=== PATIENT | female | born 1995 | race Caucasian/White ===

== ENCOUNTER 2019-04-23 19:24 | Emergency (ER) | payer BC ==
[2016-07-12 03:30] VITALS: BP 133/75
[~2019-04-23] VITALS: Ht 162.6 cm; Wt 77.1 kg
[~2019-04-23 19:24] MED LIST: HYDR-1179 PO; TIZA4TAB PO
--- NOTE | 2019-04-23 19:31 | ED.ADGEN ---
Past History Past Medical History: Constipation, Ovarian Cyst, Other Past Surgical History: Other Alcohol Use: Occasionally Drug Use: None Adult General Chief Complaint Chief Complaint ".. I got a hurt thumb..my baby hit it...".. " I already had problems with it.. ".. " It was caught on the table just right when he came down on it.. I had it recently injected with steroids.." HPI HPI Patient is a 24 year old female who presents with above hx and complaints of severe right thumb pain after contusion injury. Distal sensation intact. Capillary refill is equal to left thumb. Patient does have some edema to the thumb. Range motion exacerbates the pain. Patient is right-hand dominant. Pain is exacerbated with extension type movements and loading. There is some tenderness in the snuffbox area of hand. Patient denies any immunosuppression. Patient denies any history of travel or ill contacts. Patient has an bioinformatics support specialist she follows with at [facility]. Review of Systems Review of Systems Constitutional: Denies fever or chills [] Eyes: Denies change in visual acuity, redness, or eye pain [] HENT: Denies nasal congestion or sore throat [] Respiratory: Denies cough or shortness of breath [] Cardiovascular: No additional information not addressed in HPI [] GI: Denies abdominal pain, nausea, vomiting, bloody stools or diarrhea [] : Denies dysuria or hematuria [] Musculoskeletal: Denies back pain or joint pain []complaints of severe right thumb pain Integument: Denies rash or skin lesions [] Neurologic: Denies headache, focal weakness or sensory changes [] Endocrine: Denies polyuria or polydipsia [] All other systems were reviewed and found to be within normal limits, except as documented in this note. Family History Family History Noncontributory Current Medications Current Medications Current Medications Medications (Trade) Dose Ordered Sig/Gavin Start Time Stop Time Status Last Admin Dose Admin Oxycodone/ Acetaminophen (Percocet 5/325) 2 tab 1X ONCE 04/23/19 20:30 04/23/19 20:31 DC 04/23/19 20:24 2 TAB Allergies Allergies Allergies Coded Allergies Type Severity Reaction Last Updated Verified Penicillins Allergy Unknown 07/12/16 Yes amoxicillin Allergy Unknown 07/12/16 Yes codeine Allergy Unknown 07/12/16 Yes Physical Exam Physical Exam Constitutional: in acute distress, non-toxic appearance. [] HENT: Normocephalic, atraumatic, bilateral external ears normal, oropharynx moist, no oral exudates, nose normal. [] Eyes: PERRLA, EOMI, conjunctiva normal, no discharge. [] Neck: Normal range of motion, no tenderness, supple, no stridor. [] Cardiovascular:Heart rate regular rhythm, no murmur [] Lungs & Thorax: Bilateral breath sounds clear to auscultation [] Abdomen: Bowel sounds normal, soft, no tenderness, no masses, no pulsatile masses. [] Skin: Warm, dry, no erythema, no rash. [] Back: No tenderness, no CVA tenderness. [] Extremities: No tenderness, no cyanosis, no clubbing, ROM intact, no edema. [] Except findings in right thumb as per history of present illness Neurologic: Alert and oriented X 3, normal motor function, normal sensory function, no focal deficits noted. [] Psychologic: Affect anxious, judgement normal, mood normal. [] Current Patient Data Vital Signs Vital Signs Date Time Temp Pulse Resp B/P (MAP) Pulse Ox O2 Delivery O2 Flow Rate FiO2 04/23/19 20:24 20 Room Air 04/23/19 19:30 98.2 74 98 EKG EKG [] Radiology/Procedures Radiology/Procedures My interpretation of right hand x-ray shows some edema at base or proximal joint of right thumb phalange[]. No obvious fracture or dislocation Course & Med Decision Making Course & Med Decision Making Pertinent Labs and Imaging studies reviewed. (See chart for details) Distal neurovascular intact after application of thumb spica splint. Wear splint. Elevation. Ice packs as needed. Take Tylenol and ibuprofen for pain. Follow-up with bioinformatics support specialist. Return if any concerns. [] Final Impression Final Impression 1. Contusion to right thumb[] Dragon Disclaimer Dragon Disclaimer This electronic medical record was generated, in whole or in part, using a voice recognition dictation system. Discharge Summary Visit Information Final Diagnosis Problems Medical Problems: (1) Injury, thumb Status: Acute Brief Hospital Course Allergies Allergies Coded Allergies Type Severity Reaction Last Updated Verified Penicillins Allergy Unknown 07/12/16 Yes amoxicillin Allergy Unknown 07/12/16 Yes codeine Allergy Unknown 07/12/16 Yes Vital Signs Vital Signs Date Time Temp Pulse Resp B/P (MAP) Pulse Ox O2 Delivery O2 Flow Rate FiO2 04/23/19 20:24 20 Room Air 04/23/19 19:30 98.2 74 98 Brief Hospital Course Ms. Oneil is a 24 old female who presented with Rt. thumb injury. Discharge Information Condition at Discharge: Improved, Stable Disposition/Orders: D/C to Home Dischare Medications Current Medications Oxycodone/ Acetaminophen (Percocet 5/325) 2 tab 1X ONCE PO Last administered on 04/23/19at 20:24; Admin Dose 2 TAB; Start 04/23/19 at 20:30; Stop 04/23/19 at 20:31; Status DC Active Scripts Active Hydrocodone-Ibuprofen 7.5-200 (Hydrocodone/Ibuprofen) 1 Each Tablet 1 Tab PO PRN Q6HRS PRN Reported Tizanidine Hcl (Tizanidine HCl) 4 Mg Tablet 2 Mg PO BID Darleenon Disclaimer This chart was dictated in whole or in part using Voice Recognition software in a busy, high-work load, and often noisy Emergency Department environment. It may contain unintended and wholly unrecognized errors or omissions. BETTY CASTAÑEDA MD Apr 23, 2019 19:31
[2019-04-23] MEDS ORDERED: oxyCODONE/APAP 5/325 1 TAB TABLET PO ONE (20:30)
--- NOTE | 2019-04-24 07:36 | RAD ---
EXAM: PA, oblique and lateral views right hand DATE: 04/23/2019 7:36 PM INDICATION: Right thumb injury radiating into palm and wrist COMPARISON: No Prior FINDINGS/ IMPRESSION: 1. No evidence of acute fracture or dislocation. If there is persistent clinical concern for fracture, follow-up radiographs in 10-14 days is recommended. 2. Joint spaces are preserved without significant degenerative/proliferative change. 3. Mild soft tissue swelling about the thumb Electronically signed by: Ye Camacho MD (04/24/2019 7:34 AM) [facility]
== END 2019-04-23 21:00 | disposition home or self-care (01) ==
LOC: ER 19:24
DX: S60.011A Contusion of right thumb without damage to nail, initial encounter (principal); Z88.1 Allergy status to other antibiotic agents; Z88.0 Allergy status to penicillin; Z88.5 Allergy status to narcotic agent; W50.0XXA Accidental hit or strike by another person, initial encounter; Y93.89 Activity, other specified; Y92.89 Other specified places as the place of occurrence of the external cause; Y99.8 Other external cause status
CPT/HCPCS: 29125; 73130; 99284

== ENCOUNTER 2019-10-01 10:53 | Emergency (ER) | payer BC ==
[~2019-10-01 10:53] MED LIST changes: -TIZA4TAB PO; +TIZA4TAB2 PO
[2019-10-01 11:36] LABS: BACTERIA,URINE 0 /HPF (0-FEW); BILIRUBIN,URINE NEG (NEG); CLARITY,URINE CLEAR; COLOR,URINE YELLOW; GLUCOSE,URINE NEG (NEG); NITRITE,URINE NEG (NEG); SQUAMOUS EPITHELIAL CELL,UR MOD /LPF; UROBILINOGEN,URINE 0.2 mg/dL (0.2 mg/dL)
[2019-10-01 11:37] LABS: U PREG PATIENT NEGATIVE (NEG)
[2019-10-01] MEDS ORDERED: IV NORMAL SALINE 1,000ML 1,000 ML IV SCH (11:40)
--- NOTE | 2019-10-01 11:46 | PHYS DOC ---
Past History Past Medical History: Constipation, Ovarian Cyst Past Surgical History: No Surgical History Alcohol Use: Occasionally Drug Use: None Adult General Chief Complaint Chief Complaint: VAGINAL BLEEDING [facility] HPI Patient is a 24-year-old female who presents with report of heavy vaginal bleeding and passing clots that started this past Tuesday. Patient states that she has gone through 2 boxes of tampons since that time. She does indicate that she recently started control that she had been on in the past in the form of NuvaRing. She does indicate that she had unprotected sex prior to placing the NuvaRing. She is not sure whether or not she could be . She does indicate that she has had a lot of pelvic pain and states that she does have history of PCO S and has had numerous ovarian cysts in the past but states that this pain is more severe. She denies any fever. She also denies any chest pain or shortness of breath. She does indicate that the pelvic pain radiates into her lower back.[] Review of Systems Review of Systems Constitutional: Denies fever or chills [] Respiratory: Denies cough or shortness of breath [] Cardiovascular: No additional information not addressed in HPI [] GI: Complains of lower abdominal/pelvic pain without vomiting or diarrhea[] : Complains of heavy vaginal bleeding and pelvic pain[] Musculoskeletal: Complains of lower back pain [] Neurologic: Denies headache, focal weakness or sensory changes [] All other systems were reviewed and found to be within normal limits, except as documented in this note. Allergies Allergies Allergies Coded Allergies Type Severity Reaction Last Updated Verified Penicillins Allergy Unknown 07/12/16 Yes amoxicillin Allergy Unknown 07/12/16 Yes codeine Allergy Unknown 07/12/16 Yes Physical Exam Physical Exam Constitutional: Well developed, well nourished, no acute distress, non-toxic appearance. [] HENT: Normocephalic, atraumatic, bilateral external ears normal, oropharynx moist, no oral exudates, nose normal. [] Eyes: PERRLA, EOMI, conjunctiva normal, no discharge. [] Neck: Normal range of motion, no tenderness, supple. [] Cardiovascular: Regular rate and rhythm[] Lungs & Thorax: Bilateral breath sounds clear to auscultation [] Abdomen: Bowel sounds normal, soft, with lower abdominal tenderness. [] Skin: Warm, dry, no erythema, no rash. [] Extremities: No tenderness, no cyanosis, no clubbing, ROM intact. [] Neurologic: Alert and oriented X 3, no focal deficits noted. [] EKG EKG [] Radiology/Procedures Radiology/Procedures [] Impressions: PROCEDURE: US PELVIS Examination: US PELVIS History: Heavy bleeding, cramping Comparison/Correlation: None Findings: Transabdominal pelvic ultrasound also performed. Uterus measures 8 cm x 5.8 cm x 2.9 cm myometrium is unremarkable. Endometrial thickness of 1.5 cm present. Morphology of the endometrial cavity raises possibly of arcuate or septate uterus. Right ovary measures 2.8 x 1.9 cm in length. Left ovary measures 2.2 cm x 2.6 cm x 1 cm. Normal appearing flow and color Doppler imaging evaluation. No pelvic free fluid. Impression: Thickened endometrium. Correlate with menstrual cycle. No intrauterine gestation. Findings which raise question of arcuate or septate uterus. No adnexal masses. Electronically signed by: Christiano Victor MD (10/01/2019 1:43 PM) [facility] [place] Course & Med Decision Making Course & Med Decision Making Pertinent Labs and Imaging studies reviewed. (See chart for details) [] Dragon Disclaimer Dragon Disclaimer This electronic medical record was generated, in whole or in part, using a voice recognition dictation system. Departure Departure: Impression: Primary Impression: Dysmenorrhea Additional Impression: Menorrhagia Disposition: 01 HOME, SELF-CARE Condition: STABLE Referrals: LOGAN SMILEY (PCP) Patient Instructions: Dysmenorrhea, Menorrhagia Scripts Ondansetron (ONDANSETRON ODT) 4 Mg Tab.rapdis 1 TAB PO PRN Q6-8HRS PRN for NAUSEA, #12 TAB Prov: GARETT BERMAN Jr. DO 10/01/19 Hydrocodone Bit/Acetaminophen (NORCO 5-325 TABLET) 1 Each Tablet 1 TAB PO PRN Q6HRS PRN for PAIN, #12 TAB 0 Refills Prov: GARETT BERMAN Jr. DO 10/01/19 Problem Qualifiers Additional Impression: Menorrhagia Menorrahagia type: with irregular cycle Qualified Codes: N92.1 - Excessive and frequent menstruation with irregular cycle GARETT BERMAN Jr. DO Oct 01, 2019 11:46
[2019-10-01 12:06] LABS: BASO # 0.1 x10^3/uL (0.0-0.2); BASO % 1 % (0-3); EOS # 0.1 x10^3/uL (0.0-0.7); EOS % 1 % (0-3); HEMATOCRIT 40.5 % (36.0-47.0); HEMOGLOBIN 13.8 g/dL (12.0-15.5); LYMPH # 2.2 x10^3/uL (1.0-4.8); LYMPH % 21 % (24-48); MEAN CORPUSCULAR HEMOGLOBIN 29 pg (25-35); MEAN CORPUSCULAR HGB CONC 34 g/dL (31-37); MEAN CORPUSCULAR VOLUME 85 fL (79-100); MONO # 0.5 x10^3/uL (0.0-1.1); MONO % 4 % (0-9); NEUT # 7.6 x10^3uL (1.8-7.7); NEUT % 73 % (31-73); PLATELET COUNT 247 x10^3/uL (140-400); RED BLOOD COUNT 4.74 x10^6/uL (3.50-5.40); RED CELL DISTRIBUTION WIDTH 14.6 % (11.5-14.5); WHITE BLOOD COUNT 10.5 x10^3/uL (4.0-11.0)
[2019-10-01 12:21] LABS: CALCIUM 9.6 mg/dL (8.5-10.1); CREATININE 0.7 mg/dL (0.6-1.0); POTASSIUM 3.7 mmol/L (3.5-5.1)
[2019-10-01 12:26] LABS: DIRECT BILIRUBIN 0.1 mg/dL (0.0-0.2); MAGNESIUM 2.4 mg/dL (1.8-2.4); TOTAL BILIRUBIN 0.2 mg/dL (0.2-1.0); TOTAL PROTEIN 8.2 g/dL (6.4-8.2)
--- NOTE | 2019-10-01 13:46 | RAD ---
Examination: US PELVIS History: Heavy bleeding, cramping Comparison/Correlation: None Findings: Transabdominal pelvic ultrasound also performed. Uterus measures 8 cm x 5.8 cm x 2.9 cm myometrium is unremarkable. Endometrial thickness of 1.5 cm present. Morphology of the endometrial cavity raises possibly of arcuate or septate uterus. Right ovary measures 2.8 x 1.9 cm in length. Left ovary measures 2.2 cm x 2.6 cm x 1 cm. Normal appearing flow and color Doppler imaging evaluation. No pelvic free fluid. Impression: Thickened endometrium. Correlate with menstrual cycle. No intrauterine gestation. Findings which raise question of arcuate or septate uterus. No adnexal masses. Electronically signed by: Christiano Victor MD (10/01/2019 1:43 PM) [facility]
[2019-10-01] MEDS ORDERED: HYDR-3165 PO (14:44)
[2019-10-01] MEDS ORDERED: ONDA4TAB12 PO (14:44)
[2019-10-01 15:09] VITALS: BP 124/64
== END 2019-10-01 15:10 | disposition home or self-care (01) ==
LOC: ER 10:53
DX: N92.1 Excessive and frequent menstruation with irregular cycle (principal); N92.0 Excessive and frequent menstruation with regular cycle; Z88.0 Allergy status to penicillin; Z88.1 Allergy status to other antibiotic agents; Z88.5 Allergy status to narcotic agent
CPT/HCPCS: 36415; 76856; 80048; 80076; 81001; 81025; 83735; 84702; 85025; 99285-25; J7030

== ENCOUNTER 2020-10-29 17:22 | Emergency (ER) | payer BC ==
[~2020-10-29 17:22] MED LIST changes: +HYDR-3165 PO; +ONDA4TAB12 PO
== END 2020-10-29 18:22 | disposition left against medical advice (07) ==
LOC: ER 17:22
DX: R10.9 Unspecified abdominal pain (principal); Z53.21 Procedure and treatment not carried out due to patient leaving prior to being seen by health care provider